=== PATIENT | female | born 2000 | race Caucasian/White ===

== ENCOUNTER 2020-04-13 16:11 | Outpatient (CLI) | payer MEDICAID ==
[~2020-04-13] VITALS: Ht 157 cm; Wt 91.2 kg
--- NOTE | 2020-04-13 15:45 | NUR ---
Arrived to unit ambulates self accompanied by mother. Pt here for c/o contraction pain, leaking fluid and nausea. wt obtained and to room 318. Gowned and urine sample obtained. pt void, gowned and to bed. plan of care reviewed with pt and mother.
[2020-04-13 16:20] VITALS: BP 132/69
[2020-04-13] MEDS ORDERED: PREN-37 PO (16:23)
--- NOTE | 2020-04-13 16:25 | NUR ---
Dr Bishop notified of pt arrival, gestation and c/o.
[2020-04-13 17:00] LABS: BILIRUBIN,URINE NEGATIVE (NEGATIVE); COLOR,URINE YELLOW; GLUCOSE, URINE (UA) NEGATIVE (NEGATIVE); KETONES,URINE NEGATIVE (NEGATIVE); LEUKOCYTE ESTERASE ,URINE 2+ (NEGATIVE); NITRITE,URINE NEGATIVE (NEGATIVE); PROTEIN,URINE NEGATIVE (NEGATIVE)
[2020-04-13 17:05] LABS: CLARITY,URINE SL CLOUDY
[2020-04-13 17:06] LABS: BACTERIA,URINE MODERATE /HPF
[2020-04-13] MEDS ORDERED: CEPH-506 PO (17:27)
[2020-04-13] MEDS ORDERED: ACET325C7 PO (17:28)
--- NOTE | 2020-04-13 17:33 | Discharge Inst-Simple/Standard ---
Discharge Inst-Standard Reconcile Patient Problems Problems Reviewed?: Yes Discharge Medications New, Converted or Re-Newed RX: RX Given to Pt/Family Patient Instructions/Follow Up Plan of Care/Instructions/FU: UTI in : 5 day course of oral antibiotic Keflex, 250mg every 6 hours for 5 days Activity as Tolerated: Yes Goal: Drink plenty of water, take tylenol as directed for headaches/pains, and strict return precautions Discharge Diet: No Restrictions Health Concerns: None Return to [facility]: Return precautions in JOSEMANUEL NAPOLES MD Apr 13, 2020 17:33
[2020-04-13 17:42] VITALS: BP 132/69
--- NOTE | 2020-04-13 17:48 | NUR ---
Discharge instructions explained, signed and copy to patient. pt verbalized understanding of instructions and denied questions.
--- NOTE | 2020-04-13 17:49 | OB Triage Report ---
JOSEMANUEL NAPOLES MD 04/13/20 1749: Standard Progress Note Progress Notes/Assess & Plan Date Seen by a Provider: Apr 13, 2020 Time Seen by a Provider: 17:00 Expected Date of Delivery: Apr 19, 2020 Gestational Age in Weeks: 39 Gestational Age in Days: 1 LMP/DAISY Comment: DAISY by LMP 07/14/2019 Progress/Assessment & Plan Assessment: , 39th week gestation Positive NG/CT, DAVI- PUPPs Rubella Equivocal UTI Lula Cardenas is a 19 yo female who presented to triage with UTI. Discharged home with oral antibiotics and strict return precautions. Plan: Keflex 250mg q6h x 5 days Tylenol 325mg q4h prn pain/headache Urine sent for culture Strict return precautions Keep all OB appts Plan for elective induction 04/21/2020 HPI: Lula is a at 39w1d were presented to OB triage for a sustained contraction that occurred this afternoon in the shower that was so severe she had to sit down. She notes it lasted about 4 minutes. She admits to cramping like abdominal pain otherwise; she has not been counting contractions or movements. She admits to losing her mucus plug last week, and stating she has bloody show with her clinic cervical checks. She has been 3/0/-3 at her previous cervical checks. She states that she has had loss of fluid that is thick and yellow in color, small volume that is noticeable when she pees. She admits to rib tightness, headache that is intractable, continued pruritus. Denies vision changes, shortness of breath, chest pain/pressure, RUQ pain, and increased swelling. She has not tried any OTC medications for her headache and/or abdominal pain. VB-, LOF+ (see above), FM+, CTX+ Objective: General: No acute distress HEENT: No focal deficits CV: Regular rate, pulses palpable Lungs: No resp distress Abd: RUQ nonTTP Ext: Nonpitting edema in BLE, symmetric SVE: 350/-2 FHR: 135 Category: I, accels, no decels, prolonged variability TOCO: 09/20, irritability UA: 2+ Leukocytes, 20-50 WBC, moderate bacteria O+, Ab -, HepB -, RE, RPR-, NG/CT+ (DAVI -), GBS-, COVID unknown Final Diagnosis Final diagnosis: UTI in Diagnosis/Problems Diagnosis/Problems (1) UTI in Status: Acute Assessment & Plan: Keflex 250mg q6h x 5days Qualifiers: Qualified Codes: O23.43 - Unspecified infection of urinary tract in , third trimester ANNIE MERCADO MD 04/13/20 1207: Standard Progress Note Final Diagnosis Patient was reviewed with me over the phone and agree with above assessment and plan. JOSEMANUEL Amos MD Apr 13, 2020 17:49 ANNIE MERCADO MD Apr 13, 2020 19:07
--- NOTE | 2020-04-13 17:50 | NUR ---
Discharged to home with belongings in hand. Ambulates self downstairs to private vehicle with belongings in hand. Accompanied by mother.
== END 2020-04-13 17:50 | disposition home or self-care (01) ==
LOC: WSo 16:11 → LDRP 16:11 → WSo 17:50
PROVIDERS: ATTEND Family Medicine
DX: O23.43 Unspecified infection of urinary tract in pregnancy, third trimester (principal); Z3A.39 39 weeks gestation of pregnancy
CPT/HCPCS: 81000; 87088; 99213

== ENCOUNTER 2020-04-21 05:31 | Inpatient (IN) | payer MEDICAID ==
[~2020-04-21] VITALS: Ht 157.5 cm; Wt 95.4 kg
[2020-04-21] VITALS (62 sets, daily range): BP systolic 90–145; BP diastolic 31–88
[~2020-04-21 05:31] MED LIST: ACET325C7 PO; CEPH-506 PO; PREN-37 PO
--- OUTSIDE RECORDS SUMMARY | 2020-04-21 05:39 | XMS REPORT | Continuity of Care Document ---
Author Organization Unknown Address Unknown Phone Unavailable Allergies Active Description Code Type Severity Reaction Onset Reported/Identified Relationship to Patient Clinical Status Yes No Known Drug Allergies [id number] Drug Allergy Unknown N/A 04/13/2020 Medications There is no data. Problems Date Dx Coded Attending Type Code Diagnosis Diagnosed By 10/17/2013 DAMAIN CASAS 311 DEPRESSIVE DISORDER NOT ELSEWHERE CLASSIFIED 04/17/2020 JESS DAVIS, ANNIE Mirza Ot O23.4 3 UNSP INFCT OF URINARY TRACT IN 04/17/2020 ANNIE MERCADO MD, Ot Z3A.3 9 39 WEEKS GESTATION OF Procedures Code Description [place] [address] PSYC H DIAGNOSTIC EVALUATION 10/23/2013 Results Test Result Range CULTURE, URINE - 10/03/19 19:00 CULTURE, URINE, ROUTINE SEE NOTE NRG CULTURE, GENITAL - 10/03/19 19:00 CULTURE, GENITAL SEE NOTE NRG RUBELLA IMMUNE STATUS - 10/10/19 13:27 RUBELLA ANTIBODY (IGG) 0.95 index NRG CULTURE, GENITAL - 11/05/19 16:46 CULTURE, GENITAL SEE NOTE NRG PENTA SCREEN - 12/04/19 10:28 Maternal Weight 170 lbs NRG Est'd Date of Delivery 04/19/2020 NRG DAISY Determined by LMP NRG Mother's Ethnic Origin NRG Number of Fetuses 1 NRG Insulin Depend Diabetic NO NRG Repeat Specimen NO NRG Hx Of Neural Tube Defects NO NRG Prev Down Synd NO NRG Donor Egg NO NRG Donor Age: Egg Retrieval NOT GIVEN NRG Cigarette smoker NOT GIVEN NRG INTERPRETATION: SEE NOTE NRG Risk for ONTD <1:5000 NRG Age Risk Down Syndrome 1:1178 NRG ETHAN Down Syndrome Risk <1:5000 <1:270 ETHAN Trisomy 18 Risk <1:5000 <1:100 Calc'd Gestational Age 20.4 NRG AFP, Serum 44.2 ng/mL NRG AFP MoM 0.81 NRG hCG, Serum 7.0 IU/mL NRG hCG MoM 0.39 NRG Estriol, Free 1.74 ng/mL NRG Estriol MoM 0.86 NRG Inhibin A, Dimeric 70 pg/mL NRG Inhibin A MoM 0.43 NRG h-hCG, Serum 5.7 mcg/L NRG h-hCG MoM 0.56 NRG Date of 2000 NRG Collection Date 12/04/2019 NRG GLUCOSE JOAN 1 HOUR - 01/30/20 09:48 GLUCOSE, POSTPRANDIAL/ 1 HOUR 131 mg/dL See Note: CBC - 01/30/20 09:48 WHITE BLOOD CELL COUNT 11.3 Thousand/uL 3.8-10.8 RED BLOOD CELL COUNT 4.03 Million/uL 3.8 0-5.10 HEMOGLOBIN 12.0 g/dL 11.7-15.5 HEMATOCRIT 36.1 % 35.0-45.0 MCV 89.6 fL 80.0-100.0 MCH 29.8 pg 27.0-33.0 MCHC 33.2 g/dL 32.0-36.0 RDW 12.5 % 11.0-15.0 PLATELET COUNT 228 Thousand/uL 140-400 MPV 11.2 fL 7.5-12.5 ABSOLUTE NEUTROPHILS 8407 cells/uL 1500- 7800 ABSOLUTE LYMPHOCYTES 2305 cells/uL 850-3 900 ABSOLUTE MONOCYTES 475 cells/uL 200-950 ABSOLUTE EOSINOPHILS 79 cells/uL 15-500 ABSOLUTE BASOPHILS 34 cells/uL 0-200 NEUTROPHILS 74.4 % NRG LYMPHOCYTES 20.4 % NRG MONOCYTES 4.2 % NRG EOSINOPHILS 0.7 % NRG BASOPHILS 0.3 % NRG SYPHILIS (RPR W/ REFLEX CONFIRMATION) - 01/30/20 09:48 RPR (DX) W/REFL TITER AND CONFIRMATORY TESTING NON-REACTIVE NON-REACTIVE GLUCOSE JOAN 3 HOUR - 02/06/20 13:49 TIME 1 1038 NRG SPECIMEN 1 76 mg/dL 65-99 TIME 2 1145 NRG SPECIMEN 2 135 mg/dL NRG TIME 3 1245 NRG SPECIMEN 3 145 mg/dL NRG TIME 4 1345 NRG SPECIMEN 4 135 mg/dL NRG COMMENT NRG GLUCOSE JOAN 3 HOUR - 03/03/20 14:21 TIME 1 FASTING NRG SPECIMEN 1 81 mg/dL 65-99 TIME 2 1 HOUR NRG SPECIMEN 2 150 mg/dL NRG TIME 3 2 HOURS NRG SPECIMEN 3 113 mg/dL NRG TIME 4 3 HOURS NRG SPECIMEN 4 120 mg/dL NRG COMMENT NRG BILE ACIDS, FRACTIONATED LCMS - 03/11/20 10:42 CHOLIC ACID 0.6 umol/L < OR = 1.8 DEOXYCHOLIC ACID <0.5 umol/L < OR = 2.4 CHENODEOXYCHOLIC ACID <0.5 umol/L < OR = 3.1 TOTAL BILE ACIDS <1.5 umol/L < OR = 6.8 CULTURE, GROUP B STREP (VAGINAL) - 03/25 10:42 STREPTOCOCCUS, GROUP B CULTURE SEE NOTE NRG Complete urinalysis with reflex to cultu re - 04/13/20 16:30 Urine color determination YELLOW NRG Urine clarity determination SL CLOUDY N RG Urine pH measurement by test strip 7.0 5-9 Specific gravity of urine by test strip 1.010 1.016-1.022 Urine protein assay by test strip, semi-quantitative NEGATIVE NEGATIVE Urine glucose detection by automated test strip NE GATIVE NEGATIVE Erythrocytes detection in urine sediment by light micr oscopy NEGATIVE NEGATIVE Urine ketones detection by automated test strip NE GATIVE NEGATIVE Urine nitrite detection by test strip NEGATIVE NEGATIVE Urine total bilirubin detection by test strip NEGA TIVE NEGATIVE Urine urobilinogen measurement by automated test strip (mass/volume) 0.2 mg/dL < = 1.0 Urine leukocyte esterase detection by dipstick 2+ NEGATIVE Automated urine sediment erythrocyte cou nt by microscopy (number/high power field) NONE NRG Automated urine sediment leukocyte count by microscopy (number/high power field) [HPF] NRG Bacteria detection in urine sediment by light microsco py MODERATE NRG Squamous epithelial cells detection in u rine sediment by light microscopy 10-25 NRG Crystals detection in urine sediment by light microsco py NONE NRG Casts detection in urine sediment by light microscopy NONE NRG Mucus detection in urine sediment by light microscopy NEGATIVE NRG Complete urinalysis with reflex to culture YES NRG Bacterial urine culture - 04/13/20 16:30 Bacterial urine culture 3 OR MORE NRG COLONY COUNT >100,000/ML NRG SUSCEPTIBILITY GRAM POSITIVES, SUGGESTING PROBABLE NRG MRSA SCREEN COLLECTION CONTAMINATION WITH SKIN ALANNAH RA NRG RAPID ID NO SUSCEPTIBILITY PERFORMED N RG Encounters ACCT No. Visit Date/Time Discharge Status Pt. Type Provider Facility Loc./Unit Complaint [id number] 04/15/2020 15:15:00 04/15/2020 23:59: 59 CLS Outpatient HAILEY DAVIS, [facility] [id number] 03/25/2020 09:00:00 Document Registration [id number] 03/11/2020 09:20:00 Document Registration [id number] 03/03/2020 10:40:00 Document Registration [id number] 02/06/2020 10:20:00 Document Registration [id number] 01/30/2020 08:20:00 Document Registration [id number] 12/04/2019 13:00:00 Document Registration [id number] 11/05/2019 14:20:00 Document Registration [id number] 10/10/2019 13:20:00 Document Registration [id number] 10/03/2019 14:00:00 Document Registration [id number] 10/17/2013 13:12:00 10/17/2013 23:59:5 9 CLS Outpatient DAMIAN CASAS [id number] 04/13/2020 16:11:00 020 17:50:00 DIS Outpatient JESS DAVIS, ANNIE Escudero [facility],CONTRACTIONS [id number] 04/21/2020 06:00:00 P CANDIDO Preadanil HART MD, JYOTI GARCIA
--- NOTE | 2020-04-21 05:40 | NUR ---
SILVESTRE CALHOUN presented to unit via ambulation from home/ED, accompanied by felled seam operator chainstitch & SO, for INDUCTION. SILVESTRE CALHOUN weighed, gowned, voided, and to bed. EFHM and TOCO applied, VS taken. SILVESTRE CALHOUN oriented to bed controls, call light, TV, heat, and A/C controls.
[2020-04-21] MEDS ORDERED: D5 LR IV SOLUTION 1,000 ML IV ONE (06:04)
[2020-04-21] MEDS ORDERED: OXYTOCIN PRE-MIX DRIP 500 ML IV SCH ×2 (06:48→21:43)
[2020-04-21] MEDS: D5 LR IV SOLUTION 1,000 ML IV SCH ×2 (06:57→14:12)
[2020-04-21] MEDS ORDERED: FAMOTIDINE 20MG/2ML IV (PEPCID) ONE (07:34)
--- NOTE | 2020-04-21 07:38 | History & Physical-OB ---
JOSEMANUEL BISHOP MD 04/21/20 0737: OB - Chief Complaint & HPI Date/Time Date of Admission: Date of Admission: Apr 21, 2020 at 05:31 Date seen by a Provider: Apr 21, 2020 Time Seen by a Provider: 07:15 Chief Complaint/History OB-Reason for Admission/Chief: Induction of Labor Hx : 2 Hx Para: 0 Hx Last Menstrual Period: 07/14/2019 Expected Date of Delivery: Apr 19, 2020 Gestational Age in Weeks: 40 Gestational Age in Days: 2 Indication for induction: post dates Admission Nurse Assessment Rev: Yes Allergies and Home Medications Allergies Coded Allergies: No Known Drug Allergies (Unverified , 04/21/20) Home Medications Acetaminophen 325 Mg Capsule, 325 MG PO Q4H PRN for PAIN-MILD (1-4) Prescribed by: JOSEMANUEL BISHOP on 04/13/20 1728 Mpo343/FA/Omega3/Dha/Fish Oil 1 Each Tab.chew, 2 EACH PO DAILY, (Reported) Patient Home Medication List Home Medication List Reviewed: Yes OB - History Hx of Present Care: Yes Ultrasounds: Normal mid trimester US Obstetrical Complications: Other (PUPPS) Medical Complications: None Information Induced Hypertension: No Maternal Gestational Diabetes: No Hemorrhage: No Obstetrical History Hx : 2 Hx Para: 0 Hx # Term Pregnancies: 0 Hx # Pregnancies: 0 Number of Living Children: 0 Hx Total # of Abortions (Spona: 1 Hx Multiple Gestation: No Hx Ectopic : No Hx Stillbirth: No Hx Complication: No Hx Induced Hypertens: No Hx Maternal Gestational Diabet: No Hx Hemorrhage: No Patient Past Medical History No significant past medical history Social History/Family History HIV/AIDS: No Recent Infectious Disease Expo: No Sexually Transmitted Disease: Yes (Positive NG/CT, neg DAVI) Recreational Drug Use: No Smoking Cessation: Former smoker Immunizations Hepatitis A: Yes Hepatitis B: Yes Rubella: not immune (Equivocal) RPR/VDRL: Negative GBS Status: Negative HBsAG: Negative OB - Admission Exam Physical Exam Vitals: Vital Signs 04/21/20 06:21 Temp 36.0 Pulse 94 Resp 18 Pulse Ox 97 O2 Delivery Room Air HEENT: EOMI Heart: Rhythm Normal Lungs: Clear (Non-labored respirations) Abdomen: Gravid Extremities: Normal Reflexes: Normal Cervical Dilatation: 3cm Effacement: 50% Station: -2 Membranes: Intact Heart Rate: 130's Accelerations: Accelerations Present Decelerations: No Decelerations Extension Educator Variability: Average (6-25) Contractions on Admission: None Savage Scoring Tool (Modified) Dilation (cm): 3-4cm (2) Effacement (%): 51-79% (2) Descent/Station: -2 (1) Cervix Consistency: Medium(1) Cervix Position: Middle/Mid-Position (1) Subtract 1 point for: Nulliparity (-1) Savage Score: 6 OB - Assessment/Plan/Diagnosis Assessment Assessment: induction of labor Admission Dx Elective induction of labor 40 week gestation of Admission Status: Inpatient Order (span 2 midnights) Reason for Inpatient Admission: Elective induction of labor Plan Plan: Induction Induction Method: per Pitocin Protocol Other Plan - Induction of labor per Pitocin protocol - Patient Rubella equivocal, will need MMR Problems: (1) 40 weeks gestation of Assessment & Plan: - O+. Ab-, RPR-, HIV-, RE, NG/CT+ (-DAVI), GBS- - TOCO/CFM - IVFs - CLD (2) Encounter for induction of labor Assessment & Plan: - Pitocin protocol - Anesthesia: plan for Epidural - Pepcid for GERD (3) Rubella non-immune status, antepartum Assessment & Plan: - Will need MMR post- JYOTI HART MD 04/21/20 1009: Allergies and Home Medications Allergies Coded Allergies: No Known Drug Allergies (Unverified , 04/21/20) Home Medications Acetaminophen 325 Mg Capsule, 325 MG PO Q4H PRN for PAIN-MILD (1-4) Prescribed by: JOSEMANUEL BISHOP on 04/13/20 1728 Wbe876/FA/Omega3/Dha/Fish Oil 1 Each Tab.chew, 2 EACH PO DAILY, (Reported) Supervisory-Addendum Brief Supervisory Addendum I personally have seen and evaluated the patient. I agree with the documentation by PGY-2 Dr. Bishop. JOSEMANUEL BISHOP MD Apr 21, 2020 07:37 JYOTI HART MD Apr 21, 2020 10:09
[2020-04-21] MEDS: CATHETER FLUSH 10 ML SYR IV SCH ×3 (07:39→22:20)
[2020-04-21] MEDS ORDERED: FAMOTIDINE 20MG/2ML IV (PEPCID) IVP ONE (07:45)
[2020-04-21 07:55] LABS: BASOPHILS % (AUTO) 0 % (0-10); EOSINOPHILS # (AUTO) 0.3 10^3/uL (0.0-0.3); EOSINOPHILS % (AUTO) 3 % (0-10); HEMATOCRIT 34 % (35-52); HEMOGLOBIN 11.7 G/DL (11.5-16.0); LYMPHOCYTES # (AUTO) 2.5 X 10^3 (1.0-4.0); LYMPHOCYTES % (AUTO) 23 % (12-44); MEAN CORPUSCULAR HEMOGLOBIN 29 PG (25-34); MEAN CORPUSCULAR HGB CONC 34 G/DL (32-36); MEAN CORPUSCULAR VOLUME 85 FL (80-99); MEAN PLATELET VOLUME 11.3 FL (7.4-10.4); MONOCYTES % (AUTO) 9 % (0-12); NEUTROPHILS # (AUTO) 7.1 X 10^3 (1.8-7.8); NEUTROPHILS % (AUTO) 65 % (42-75); PLATELET COUNT 210 10^3/uL (130-400); RED CELL DISTRIBUTION WIDTH 14.1 % (10.0-14.5); WHITE BLOOD COUNT 10.9 10^3/uL (4.3-11.0)
[2020-04-21] MEDS ORDERED: PNV11TAB5 PO (08:53)
[2020-04-21] MEDS ORDERED: fentaNYL 2 mcg/ml BUPIVA 0.125 100 ML ONE (10:41)
[2020-04-21] MEDS ORDERED: fentaNYL INJECTION 100 MCG/2 ML AMP ONE ×2 (11:09→20:35)
[2020-04-21] MEDS ORDERED: BUPIVACAINE 0.25% 30 ML (SENSORCAINE) VIAL ONE (11:09)
--- NOTE | 2020-04-21 11:16 | NUR ---
Dr. Morales here for epidural placement. Procedure explained, consent reviewed and signed by anesthesia. Questions answered to patient's satisfaction. Time out taken to verify correct patient/procedure. Patient up to side of bed, assisted into sitting position. Betadine prep done x3 and sterile drape applied. Local done, see anesthesia record. Test dose given, see anesthesia record for drug and dosage. Epidural catheter secured in place. Epidural placement complete. Assisted back into bed, monitors adjusted. Epidural dosed, see anesthesia record. Epidural of Fentanyl/Bupivicaine @ 12 cc/hr stated per pump. Patient tolerated procedure well.
[2020-04-21] MEDS: fentaNYL 2 mcg/ml BUPIVA 0.125 100 ML IV SCH ×2 (11:35→19:17)
[2020-04-21] MEDS ORDERED: LACTATED RINGERS 1,000 ML IV ONE ×2 (12:41→20:20)
[2020-04-21] MEDS ORDERED: diphenhydrAMINE 50 MG/ML INJ (BENADRYL) IV PRN (12:45)
[2020-04-21] MEDS ORDERED: NALOXONE 0.4 MG/ML 1 ML (NARCAN) VIAL IV PRN (12:45)
[2020-04-21] MEDS ORDERED: CATHETER FLUSH 10 ML SYR IV PRN (12:45)
[2020-04-21] MEDS ORDERED: EPIDURAL (fentaNYL 2 MCG/ML BUPIVA 0.125%)100 ML BAG EPI SCH (12:45)
[2020-04-21] MEDS ORDERED: ONDANSETRON 4 MG/2 ML (SDV) Z0FRAN IV PRN (12:45)
[2020-04-21] MEDS ORDERED: METOCLOPRAMIDE INJ 10 MG/2 ML (REGLAN) IVP NR (15:30)
--- NOTE | 2020-04-21 18:30 | NUR ---
Dr. Samuels updated on patient's status. Will come to hospital to evaluate patient.
[2020-04-21] MEDS ORDERED: FAMOTIDINE 20MG/2ML IV (PEPCID) IVP PRN (19:45)
[2020-04-21] MEDS ORDERED: CITRIC ACID/SOB CIT (BICITRA) 30 ML UDC ONE (20:20)
[2020-04-21] MEDS ORDERED: ceFAZolin 2 GM IV Premixed 50 ML ONE (20:20)
[2020-04-21] MEDS ORDERED: LACTATED RINGERS 1,000 ML IV PRN ×2 (20:23)
[2020-04-21] MEDS ORDERED: METOCLOPRAMIDE INJ 10 MG/2 ML (REGLAN) IV ONE (20:30)
[2020-04-21] MEDS ORDERED: ceFAZolin 2 GM IV Premixed 50 ML IV ONE (20:30)
[2020-04-21] MEDS ORDERED: CITRIC ACID/SOB CIT (BICITRA) 30 ML UDC PO ONE (20:30)
--- NOTE | 2020-04-21 20:31 | Labor Progress Note ---
Labor Progress Note Labor Progress Note Date Seen by Provider: Apr 21, 2020 Time Seen by Provider: 20:15 Subjective: Pt denies complaints. Objective: Cervical exam: 80/-2 Consistency: soft Position: anterior Presentation: vertex heart tones: 180 beats per minute, moderate variability Tocometer: 5 ctx/10 minutes Assessment/Plan: Lula Cardenas is a 19 /Para 2 / 0,Gestational Age 40w2d here for IOL. FSE/TOCO Anesthesia: epidural No cervical change in 4 hours in spite of adequate contractions with pitocin and SROM this morning, increasing caput without gain of station, suspect OP/CPD, now with tachycardia, discussed with patient and recommend proceeding to . She is in agreement. Discussed with Dr. Dalal front of house manager for [employer] Chemist who is also in agreement. Vitals - Labs Vital Signs - I&O Vital Signs Date Time Temp Pulse Resp B/P (MAP) Pulse Ox O2 Delivery O2 Flow Rate FiO2 04/21/20 20:00 87 18 111/75 (87) 99 04/21/20 19:40 96 18 129/63 (85) 99 04/21/20 19:20 36.5 97 20 132/74 (93) 98 04/21/20 19:00 97 18 120/76 (91) 99 Room Air 04/21/20 18:45 97 18 132/78 (96) 99 Room Air 04/21/20 18:30 36.3 97 18 132/78 (96) 98 Room Air 04/21/20 18:15 106 18 107/59 (75) 98 Room Air 04/21/20 18:00 101 18 98/55 (69) 99 Room Air 04/21/20 17:45 100 18 100/53 (69) 99 Room Air 04/21/20 17:30 36.6 95 18 110/72 (85) 97 Room Air 04/21/20 17:15 86 18 100/57 (71) 96 Room Air 04/21/20 17:00 86 18 99/57 (71) 97 Room Air 04/21/20 16:45 78 18 101/55 (70) 97 Room Air 04/21/20 16:30 36.4 86 18 115/64 (81) 96 Room Air 04/21/20 16:15 86 18 111/69 (83) 97 Room Air 04/21/20 16:00 36.1 83 18 111/72 (85) 97 Room Air 04/21/20 15:45 96 18 122/85 (97) 98 Room Air 04/21/20 15:30 35.7 100 18 117/73 (88) 98 Room Air 04/21/20 15:15 96 18 125/77 (93) 97 Room Air 04/21/20 15:00 93 18 127/70 (89) 98 Room Air 04/21/20 14:45 95 18 121/69 (86) 97 Room Air 04/21/20 14:30 99 18 122/69 (86) 98 Room Air 04/21/20 14:15 127 18 135/71 (92) 98 Room Air 04/21/20 14:00 100 18 131/70 (90) 98 Room Air 04/21/20 13:45 102 18 134/63 (86) 98 Room Air 04/21/20 13:30 98 18 133/88 (103) 98 Room Air 04/21/20 13:15 36.0 94 18 122/75 (91) 98 Room Air 04/21/20 13:00 83 18 126/74 (91) 98 Room Air 04/21/20 12:45 87 18 129/78 (95) 98 Room Air 04/21/20 12:30 36.3 93 18 135/77 (96) 98 Room Air 04/21/20 12:15 85 18 132/74 (93) 97 Room Air 04/21/20 12:00 85 18 141/71 (94) 97 Room Air 04/21/20 11:45 107 18 145/75 (98) 97 Room Air 04/21/20 11:33 97 18 139/71 (93) 97 Room Air 04/21/20 11:30 97 18 138/84 (102) 98 Room Air 04/21/20 11:27 94 18 137/87 (104) 97 Room Air 04/21/20 11:26 104 18 136/80 (98) 98 Room Air 04/21/20 11:18 100 18 142/88 (106) 98 Room Air 04/21/20 11:16 100 18 136/79 (98) 98 Room Air 04/21/20 11:15 101 18 136/79 (98) Room Air 04/21/20 11:00 95 18 135/82 (99) Room Air 04/21/20 10:45 36.3 93 18 126/84 (98) Room Air 04/21/20 10:30 79 18 119/67 (84) Room Air 04/21/20 10:15 84 18 139/82 (101) Room Air 04/21/20 10:00 88 18 132/79 (96) Room Air 04/21/20 09:45 83 18 127/75 (92) Room Air 04/21/20 09:30 83 18 139/79 (99) Room Air 04/21/20 09:15 18 Room Air 04/21/20 09:00 18 Room Air 04/21/20 08:45 90 18 119/76 (90) Room Air 04/21/20 08:30 90 18 120/77 (91) Room Air 04/21/20 08:15 98 18 135/85 (102) Room Air 04/21/20 08:00 83 18 127/78 (94) Room Air 04/21/20 07:45 82 18 133/80 (97) Room Air 04/21/20 07:10 36.3 04/21/20 06:21 36.0 94 18 97 Room Air Labs Laboratory Tests 04/21/20 07:44: White Blood Count 10.9, Red Blood Count 4.03L, Hemoglobin 11.7, Hematocrit 34L, Mean Corpuscular Volume 85, Mean Corpuscular Hemoglobin 29, Mean Corpuscular Hemoglobin Concent 34, Red Cell Distribution Width 14.1, Platelet Count 210, Mean Platelet Volume 11.3H, Neutrophils (%) (Auto) 65, Lymphocytes (%) (Auto) 23, Monocytes (%) (Auto) 9, Eosinophils (%) (Auto) 3, Basophils (%) (Auto) 0, Neutrophils # (Auto) 7.1, Lymphocytes # (Auto) 2.5, Monocytes # (Auto) 1.0, Eosinophils # (Auto) 0.3, Basophils # (Auto) 0.0 JYOTI HART MD Apr 21, 2020 20:31
[2020-04-21] MEDS ORDERED: BUPIVACAINE 0.5% 30 ML (SENSORCAINE) VIAL ONE ×2 (20:35→22:11)
[2020-04-21] MEDS ORDERED: LIDOCAINE PF 2% 5 ML (XYLOCAINE) VIAL ONE (20:35)
--- NOTE | 2020-04-21 20:53 | NUR ---
Monitors removed. Pt taken to OR per OR staff.
[2020-04-21] MEDS ORDERED: ONDANSETRON 4 MG/2 ML (SDV) Z0FRAN ONE (21:07)
[2020-04-21] MEDS ORDERED: KETAMINE/NaCl 50 MG/5 ML SYRINGE (ED ONLY) ONE (21:12)
[2020-04-21] MEDS ORDERED: KETOROLAC 30 MG/ML VIAL ONE (21:34)
[2020-04-21] MEDS ORDERED: TETANUS,DIPTH,PERTUSS P/F (BOOSTRIX) 0.5 ML VIAL IM SCH (21:45)
[2020-04-21] MEDS ORDERED: MEASLES,MUMPS,RUBELLA 1 EA INJ SC SCH (21:45)
[2020-04-21] MEDS ORDERED: ONDANSETRON 4 MG/2 ML (SDV) Z0FRAN IVP PRN (21:45)
--- NOTE | 2020-04-21 21:49 | Consultation ---
History of Present Illness History of Present Illness Patient Consulted On(norma/time) 04/21/20 21:46 Date Seen by Provider: Apr 21, 2020 Time Seen by Provider: 21:46 Reason for Visit: Induction of labor History of Present Illness Patient admitted for labor induction post dates. AROM, Pitocin used and progressed to 6 cm, and made no change for 4 hrs when I was contacted about per sistent tachycardia Allergies and Home Medications Allergies Coded Allergies: No Known Drug Allergies (Unverified , 04/21/20) Home Medications Acetaminophen 325 Mg Capsule, 325 MG PO Q4H PRN for PAIN-MILD (1-4) Prescribed by: RITANIKKI YESIKA on 04/13/20 1728 Dyr419/FA/Omega3/Dha/Fish Oil 1 Each Tab.chew, 2 EACH PO DAILY, (Reported) Patient Home Medication List Home Medication List Reviewed: Yes Past Jjtqhcc-Izdiqz-Mjqslz Hx Patient Social History Alcohol Use: Denies Use Recreational Drug Use: No Smoking Status: Former Smoker Type Used: Cigarettes Former Smoker, Quit: Sep 10, 2019 Recent Foreign Travel: No Contact w/Someone Who Travel: No Recent Infectious Disease Expo: No Recent Hopitalizations: No Immunizations Up To Date PED Vaccines UTD: Yes Seasonal Allergies Seasonal Allergies: No Past Medical History Surgeries: Yes (D&C 2018, Tooth Extraction) Respiratory: No Cardiac: No Neurological: No Expected Date of Delivery: Apr 19, 2020 Hx : 2 Hx Para: 0 Hx Total # of Abortions (Sp): 1 Female Reproductive Disorders: Denies Sexually Transmitted Disease: Yes (GC/Chlamydia with this ) HIV/AIDS: No Genitourinary: Yes UTI-Chronic Gastrointestinal: Yes Gastroesophageal Reflux Musculoskeletal: No Endocrine: No HEENT: No Loss of Vision: Denies Hearing Impairment: Denies Cancer: No Psychosocial: No Integumentary: Yes (PUPPS with this ) Blood Disorders: No Adverse Reaction/Blood Tranf: No Family Medical History Heart murmur Grandparents (Maternal Grandmother) History of seizure in sibling G8 BROTHER (At age 7-8 r/t Cyst in Brain) Myocardial infarction Great-Grandparents (Maternal Great-Grandfather) Neoplasm Grandparents (Paternal Grandfather-) Ovarian cancer Great-Grandparents (Maternal Great-Grandmother) Psychosocial problem 19 FATHER (PTSD) Respiratory disorder Great-Grandparents (Maternal Great-Grandfather: Mesothelioma) Review of Systems-General Constitutional: see HPI EENTM: see HPI Respiratory: see HPI Cardiovascular: see HPI Gastrointestinal: see HPI Genitourinary: see HPI : Yes Expected Date of Delivery: Apr 19, 2020 Musculoskeletal: see HPI Skin: see HPI Psychiatric/Neurological: See HPI All Other Systems Reviewed Negative Unless Noted: Yes Physical Exam-General Problems Physical Exam Vital Signs Vital Signs - First Documented 04/21/20 04/21/20 06:21 07:45 Temp 36.0 Pulse 94 Resp 18 B/P (MAP) 133/80 (97) Pulse Ox 97 O2 Delivery Room Air Capillary Refill : Less Than 3 Seconds General Appearance: WD/WN HEENT: PERRL/EOMI Neck: non-tender Respiratory: chest non-tender Cardiovascular: regular rate, rhythm Gastrointestinal: normal bowel sounds Back: normal inspection Neurologic/Psychiatric: normal mood/affect, oriented x 3 Assessment/Plan Assessment/Plan Admission Diagnosis/Plan Diagnosis: 19 yo @ 40.2 weeks Failure to progress Persistent tachycardia Admission Status: Inpatient Order (span 2 midnights) Reason for Inpatient Admission: PLTCS Clinical Quality Measures DVT/VTE Risk/Contraindication: Risk Factor Score Per Nursin RFS Level Per Nursing on Admit: 2=Moderate KARINE IRWIN DO Apr 21, 2020 21:49
[2020-04-21] MEDS ORDERED: CATHETER FLUSH 10 ML SYR IV SCH (22:00)
[2020-04-21] MEDS ORDERED: OXYTOCIN PRE-MIX DRIP 1,000 ML IV ONE (22:11)
[2020-04-21] MEDS: KETOROLAC 30 MG/ML VIAL IV SCH (22:11)
--- NOTE | 2020-04-21 23:00 | NUR ---
Pt to room 308 from recovery.
[2020-04-22 00:15] VITALS: BP 118/70
--- NOTE | 2020-04-22 01:00 | NUR ---
Assisted pt up to bathroom to void. tolerated well. Void small amount. Jessica care done. Minimal rubra noted. No clots. Back to bed. SCD's in place. IS done. tolerated well.
--- NOTE | 2020-04-22 01:30 | NUR ---
Assisted with breast feeding.
--- NOTE | 2020-04-22 03:48 | OPERATIVE REPORT ---
DATE OF SERVICE: PREOPERATIVE DIAGNOSES: 1. A 19-year-old G2, P0 at 40 weeks and 2 days gestation. 2. Failure to progress. 3. Persistent tachycardia. POSTOPERATIVE DIAGNOSES: 1. A 19-year-old G2, P0 at 40 weeks and 2 days gestation. 2. Failure to progress. 3. Persistent tachycardia. 4. Nuchal cord x1. PROCEDURE: Primary low transverse section. SURGEON: Charan Dalal DO ARCHEOLOGIST: Tori Sher, 3rd year PA student. ANESTHESIA: Epidural, which was bolused. ESTIMATED BLOOD LOSS: 450 mL. URINE OUTPUT: 300 mL pink tinged at the end of the procedure. FLUIDS: 1000 mL lactated Ringer's solution. FINDINGS: A live male infant weighing 6 pounds 14 ounces, Apgars of 7 and 9. Grossly normal appearing uterus, bilateral fallopian tubes and ovaries. SPECIMEN SENT: Placenta. INDICATIONS FOR PROCEDURE: A 19-year-old female was a patient that was admitted and sought care with Dr. Samuels. Her care was uncomplicated. She was induced for postdates. AROM and Pitocin augmentation was used as well as epidural was achieved for analgesia. She progressed to 6 cm, at which point she made no cervical change for over 4 hours and there was also persistent tachycardia. Due to this tachycardia and remote from delivery, recommendation was made to proceed with . Risks of the procedure was reviewed with the patient in detail and after all of her questions were answered in the preoperative area, consent was obtained with her mother present and the patient was taken to the operating room. OPERATIVE REPORT IN DETAIL: Once in the operating room, epidural analgesia was bolused and found to be adequate, placed in supine position with leftward tilt, prepped and draped in normal sterile fashion. A timeout was performed and anesthesia was tested. I then make a Pfannenstiel skin incision with a knife and carried down layer of fascia using Bovie cautery. Superior aspect of the fascial incision was then grasped with Nikia clamps, tented up and dissected off the underlying rectus muscles. The inferior aspect of the fascial incision was then grasped with Nikia clamps, tented up and dissected off the underlying rectus muscles. Rectus muscles were then dissected down the midline using Gauthier scissors, which exposed the peritoneum, which I entered bluntly and extended using blunt traction. I then placed an Ever ring retractor within the peritoneal incision, which offers excellent lateral sidewall retraction. The lower uterine segment was found to be thinned out and I make a low transverse incision to the vesicouterine peritoneum and bluntly dissected off the lower uterine segment. I proceeded with myotomy until membranes were visualized, at which point I extended the uterine incision laterally and superiorly using bandage scissors. Infant was found in vertex presentation. With gentle fundal pressure, the infant's head was elevated up the incision where the nares and oropharynx bulb suctioned. Nuchal cord was reduced x1. Anterior and posterior shoulders were delivered. was then brought to the operative field where the cord was doubly clamped and cut and infant was handed off to Dr. Samuels, who was present for delivery. Cord blood was collected. A 3-vessel cord with intact placenta was delivered spontaneously thereafter. IV Pitocin was initiated to facilitate uterine contraction. Uterine fundus became firmer with bimanual massage. Uterus was exteriorized and cleared of all endometrial clots and debris. I then proceeded with closing the uterine incision using 0 Vicryl suture in running locked fashion. Second layer of imbricating 0 Monocryl was placed. Excellent hemostasis was noted after doing this. I then placed the uterus back in the pelvis and copiously irrigated the pelvis using normal saline. Once again, there was no active bleeding noted from any of my dissection planes. I placed Interceed antiadhesive over my low transverse incision and proceeded with removing the Ever ring retractor. I reapproximated the peritoneum using 3-0 Vicryl suture in a running fashion. The rectus muscle reapproximated using 3-0 Vicryl suture in interrupted fashion. The fascia was reapproximated using 0 Vicryl suture in running fashion. Subcutaneous tissue was reapproximated using 3-0 plain in interrupted subcutaneous stitch and skin was reapproximated using 4-0 Monocryl running subcuticular. Dermabond was applied to incision and sterile dressing with adhesive white tape. The patient tolerated the procedure well and sent to recovery in stable condition. Lap and sponge count were correct at the end of procedure. Instrument counts correct as well. Two grams of Ancef were given probably for infection prophylaxis. Job ID: [id number] DocumentID: [id number] Dictated Date: 04/21/2020 21:53:07 Factory Representative Date: 04/22/2020 03:47:56 Dictated By: CHARAN DALAL DO
[2020-04-22] MEDS: KETOROLAC 30 MG/ML VIAL IV SCH ×2 (04:12→10:40)
[2020-04-22] MEDS: HYDROcodone/APAP 5 MG/325 MG (LORTAB) TAB PO PRN ×4 (04:27→21:17)
[2020-04-22 04:35] VITALS: BP 107/58
--- NOTE | 2020-04-22 04:37 | NUR ---
Assisted pt up to bathroom to void. No issues. Bleeding minimal
[2020-04-22 05:10] LABS: BASOPHILS % (AUTO) 0 % (0-10); EOSINOPHILS # (AUTO) 0.2 10^3/uL (0.0-0.3); EOSINOPHILS % (AUTO) 1 % (0-10); HEMATOCRIT 26 % (35-52); HEMOGLOBIN 8.6 G/DL (11.5-16.0); LYMPHOCYTES # (AUTO) 2.5 X 10^3 (1.0-4.0); LYMPHOCYTES % (AUTO) 15 % (12-44); MEAN CORPUSCULAR HEMOGLOBIN 28 PG (25-34); MEAN CORPUSCULAR HGB CONC 33 G/DL (32-36); MEAN CORPUSCULAR VOLUME 87 FL (80-99); MEAN PLATELET VOLUME 11.5 FL (7.4-10.4); MONOCYTES # (AUTO) 1.2 X 10^3 (0.0-1.0); MONOCYTES % (AUTO) 7 % (0-12); NEUTROPHILS # (AUTO) 13.1 X 10^3 (1.8-7.8); NEUTROPHILS % (AUTO) 77 % (42-75); PLATELET COUNT 169 10^3/uL (130-400); RED CELL DISTRIBUTION WIDTH 14.2 % (10.0-14.5)
[2020-04-22] MEDS: METOCLOPRAMIDE 10 MG (REGLAN) TAB PO SCH ×4 (07:10→20:24)
--- NOTE | 2020-04-22 07:23 | NUR ---
Report given to Sergio SCOTT
--- NOTE | 2020-04-22 07:52 | Postpartum Progress Note ---
JOSEMANUEL NAPOLES MD 04/22/20 0752: Note Note and postoperative Day # [1] Subjective: Patient is without complaints. Ambulating, voiding. Tolerating a regular diet without nausea or vomiting. Normal lochia. Pain is well controlled with oral pain medications. Her pain is exacerbated with walking and torso movement. [Breast] feeding well. She is passing gas but has yet to have a BM. She does admits to mild dysuria. Objective: [Vitals: temp 35.9, HR 105, BP 107/58, RR 18 ] Physical Exam: General - Alert and oriented, no apparent distress CV - Rate 90, regular rhythm; peripheral pulses palpable Pulm - CTA bilaterally with normal resp. effort Abdomen - Soft, appropriately tender to palpation, non-distended, fundus firm at umbilicus, Pfannenstiel incision c/d/i Extremities - mild nonpitting edema, nonTTP Neuro - grossly intact Psych - Calm and cooperative Assessment: 19yo complications: PUPPS, +NG/CT (-DAVI) Post- day # [1], status post following arrest of labor. Recovering well, hemodynamically stable (AP hgb: 11.7, PP hgb 8.6) Rubella equivocal Plan: Routine and postoperative care. PO pain meds prn MMR to be administered prior to discharge Encourage breast feeding. Encourage ambulation. Plan for discharge [04/23] Patient to be seen and discussed with Dr. Samuels. Vitals - Labs Vital Signs - I&O Vital Signs Date Time Temp Pulse Resp B/P (MAP) Pulse Ox O2 Delivery O2 Flow Rate FiO2 04/22/20 04:35 35.9 105 18 107/58 (74) 98 Room Air 04/22/20 00:15 36.4 122 18 118/70 (86) 04/21/20 22:45 37.1 22 109/78 (88) 99 Room Air 04/21/20 22:45 Room Air 04/21/20 22:40 22 107/76 (86) 99 Room Air 04/21/20 22:37 Room Air 04/21/20 22:30 18 108/79 (89) 100 Room Air 04/21/20 22:28 Room Air 04/21/20 22:20 22 102/64 (77) 99 Room Air 04/21/20 22:10 22 90/31 (50) 100 Room Air 04/21/20 22:10 Room Air 04/21/20 22:05 22 100/61 (74) 100 Room Air 04/21/20 21:57 Room Air 04/21/20 21:57 37.2 22 113/64 (80) 100 Room Air 04/21/20 20:40 112 20 145/83 (103) 97 Room Air 04/21/20 20:20 36.5 100 20 135/81 (99) 98 04/21/20 20:00 87 18 111/75 (87) 99 04/21/20 19:40 96 18 129/63 (85) 99 04/21/20 19:20 36.5 97 20 132/74 (93) 98 04/21/20 19:00 97 18 120/76 (91) 99 Room Air 04/21/20 18:45 97 18 132/78 (96) 99 Room Air 04/21/20 18:30 36.3 97 18 132/78 (96) 98 Room Air 04/21/20 18:15 106 18 107/59 (75) 98 Room Air 04/21/20 18:00 101 18 98/55 (69) 99 Room Air 04/21/20 17:45 100 18 100/53 (69) 99 Room Air 04/21/20 17:30 36.6 95 18 110/72 (85) 97 Room Air 04/21/20 17:15 86 18 100/57 (71) 96 Room Air 04/21/20 17:00 86 18 99/57 (71) 97 Room Air 04/21/20 16:45 78 18 101/55 (70) 97 Room Air 04/21/20 16:30 36.4 86 18 115/64 (81) 96 Room Air 04/21/20 16:15 86 18 111/69 (83) 97 Room Air 04/21/20 16:00 36.1 83 18 111/72 (85) 97 Room Air 04/21/20 15:45 96 18 122/85 (97) 98 Room Air 04/21/20 15:30 35.7 100 18 117/73 (88) 98 Room Air 04/21/20 15:15 96 18 125/77 (93) 97 Room Air 04/21/20 15:00 93 18 127/70 (89) 98 Room Air 04/21/20 14:45 95 18 121/69 (86) 97 Room Air 04/21/20 14:30 99 18 122/69 (86) 98 Room Air 04/21/20 14:15 127 18 135/71 (92) 98 Room Air 04/21/20 14:00 100 18 131/70 (90) 98 Room Air 04/21/20 13:45 102 18 134/63 (86) 98 Room Air 04/21/20 13:30 98 18 133/88 (103) 98 Room Air 04/21/20 13:15 36.0 94 18 122/75 (91) 98 Room Air 04/21/20 13:00 83 18 126/74 (91) 98 Room Air 04/21/20 12:45 87 18 129/78 (95) 98 Room Air 04/21/20 12:30 36.3 93 18 135/77 (96) 98 Room Air 04/21/20 12:15 85 18 132/74 (93) 97 Room Air 04/21/20 12:00 85 18 141/71 (94) 97 Room Air 04/21/20 11:45 107 18 145/75 (98) 97 Room Air 04/21/20 11:33 97 18 139/71 (93) 97 Room Air 04/21/20 11:30 97 18 138/84 (102) 98 Room Air 04/21/20 11:27 94 18 137/87 (104) 97 Room Air 04/21/20 11:26 104 18 136/80 (98) 98 Room Air 04/21/20 11:18 100 18 142/88 (106) 98 Room Air 04/21/20 11:16 100 18 136/79 (98) 98 Room Air 04/21/20 11:15 101 18 136/79 (98) Room Air 04/21/20 11:00 95 18 135/82 (99) Room Air 04/21/20 10:45 36.3 93 18 126/84 (98) Room Air 04/21/20 10:30 79 18 119/67 (84) Room Air 04/21/20 10:15 84 18 139/82 (101) Room Air 04/21/20 10:00 88 18 132/79 (96) Room Air 04/21/20 09:45 83 18 127/75 (92) Room Air 04/21/20 09:30 83 18 139/79 (99) Room Air 04/21/20 09:15 18 Room Air 04/21/20 09:00 18 Room Air 04/21/20 08:45 90 18 119/76 (90) Room Air 04/21/20 08:30 90 18 120/77 (91) Room Air 04/21/20 08:15 98 18 135/85 (102) Room Air 04/21/20 08:00 83 18 127/78 (94) Room Air 04/21/20 07:45 82 18 133/80 (97) Room Air I & O 04/22/20 07:00 Intake Total 3050 ml Output Total 1200 ml Balance 1850 ml Labs Laboratory Tests 04/21/20 07:44: White Blood Count 10.9, Red Blood Count 4.03L, Hemoglobin 11.7, Hematocrit 34L, Mean Corpuscular Volume 85, Mean Corpuscular Hemoglobin 29, Mean Corpuscular Hemoglobin Concent 34, Red Cell Distribution Width 14.1, Platelet Count 210, Me an Platelet Volume 11.3H, Neutrophils (%) (Auto) 65, Lymphocytes (%) (Auto) 23, Monocytes (%) (Auto) 9, Eosinophils (%) (Auto) 3, Basophils (%) (Auto) 0, Neutrophils # (Auto) 7.1, Lymphocytes # (Auto) 2.5, Monocytes # (Auto) 1.0, Eosinophils # (Auto) 0.3, Basophils # (Auto) 0.0 04/22/20 04:47: White Blood Count 17.0H, Red Blood Count 3.03L, Hemoglobin 8.6#L, Hematocrit 26L , Mean Corpuscular Volume 87, Mean Corpuscular Hemoglobin 28, Mean Corpuscular Hemoglobin Concent 33, Red Cell Distribution Width 14.2, Platelet Count 169, Mean Platelet Volume 11.5H, Neutrophils (%) (Auto) 77H, Lymphocytes (%) (Auto) 15, Monocytes (%) (Auto) 7, Eosinophils (%) (Auto) 1, Basophils (%) (Auto) 0, Neutrophils # (Auto) 13.1H, Lymphocytes # (Auto) 2.5, Monocytes # (Auto) 1.2H, Eosinophils # (Auto) 0.2, Basophils # (Auto) 0.0 JYOTI SAMUELS MD 04/24/20 1305: Supervisory-Addendum Brief Supervisory Addendum Pt seen by Dr. Dalal, I did not see her , cannot confirm resident note, see Dr. Dalal's notes. JOSEMANUEL NAPOLES MD Apr 22, 2020 07:52 JYOTI SAMUELS MD Apr 24, 2020 13:05
[2020-04-22] MEDS: CATHETER FLUSH 10 ML SYR IV SCH ×2 (08:15→10:41)
--- NOTE | 2020-04-22 08:19 | Postpartum Progress Note ---
Note Note Day # 1 Subjective: Patient is without complaints. Ambulating, voiding. Tolerating a regular diet without nausea or vomiting. Normal lochia. Pain is well controlled with oral pain medications. [ Objective: Physical Exam: General - Alert and oriented, no apparent distress Abdomen - Soft, appropriately tender to palpation, non-distended, fundus firm at umbilicus Extremities - no edema, negative Karan's bilaterally Incision- c/d/i Assessment: POD 1 PLTCS Acute blood loss anemia Plan: Routine care. Encourage breast feeding. Encourage ambulation. Ferrous sulfate supplementation. Plan for discharge tomorrow Vitals - Labs Vital Signs - I&O Vital Signs Date Time Temp Pulse Resp B/P (MAP) Pulse Ox O2 Delivery O2 Flow Rate FiO2 04/22/20 04:35 35.9 105 18 107/58 (74) 98 Room Air 04/22/20 00:15 36.4 122 18 118/70 (86) 04/21/20 22:45 37.1 22 109/78 (88) 99 Room Air 04/21/20 22:45 Room Air 04/21/20 22:40 22 107/76 (86) 99 Room Air 04/21/20 22:37 Room Air 04/21/20 22:30 18 108/79 (89) 100 Room Air 04/21/20 22:28 Room Air 04/21/20 22:20 22 102/64 (77) 99 Room Air 04/21/20 22:10 22 90/31 (50) 100 Room Air 04/21/20 22:10 Room Air 04/21/20 22:05 22 100/61 (74) 100 Room Air 04/21/20 21:57 Room Air 04/21/20 21:57 37.2 22 113/64 (80) 100 Room Air 04/21/20 20:40 112 20 145/83 (103) 97 Room Air 04/21/20 20:20 36.5 100 20 135/81 (99) 98 04/21/20 20:00 87 18 111/75 (87) 99 04/21/20 19:40 96 18 129/63 (85) 99 04/21/20 19:20 36.5 97 20 132/74 (93) 98 04/21/20 19:00 97 18 120/76 (91) 99 Room Air 04/21/20 18:45 97 18 132/78 (96) 99 Room Air 04/21/20 18:30 36.3 97 18 132/78 (96) 98 Room Air 04/21/20 18:15 106 18 107/59 (75) 98 Room Air 04/21/20 18:00 101 18 98/55 (69) 99 Room Air 04/21/20 17:45 100 18 100/53 (69) 99 Room Air 04/21/20 17:30 36.6 95 18 110/72 (85) 97 Room Air 04/21/20 17:15 86 18 100/57 (71) 96 Room Air 04/21/20 17:00 86 18 99/57 (71) 97 Room Air 04/21/20 16:45 78 18 101/55 (70) 97 Room Air 04/21/20 16:30 36.4 86 18 115/64 (81) 96 Room Air 04/21/20 16:15 86 18 111/69 (83) 97 Room Air 04/21/20 16:00 36.1 83 18 111/72 (85) 97 Room Air 04/21/20 15:45 96 18 122/85 (97) 98 Room Air 04/21/20 15:30 35.7 100 18 117/73 (88) 98 Room Air 04/21/20 15:15 96 18 125/77 (93) 97 Room Air 04/21/20 15:00 93 18 127/70 (89) 98 Room Air 04/21/20 14:45 95 18 121/69 (86) 97 Room Air 04/21/20 14:30 99 18 122/69 (86) 98 Room Air 04/21/20 14:15 127 18 135/71 (92) 98 Room Air 04/21/20 14:00 100 18 131/70 (90) 98 Room Air 04/21/20 13:45 102 18 134/63 (86) 98 Room Air 04/21/20 13:30 98 18 133/88 (103) 98 Room Air 04/21/20 13:15 36.0 94 18 122/75 (91) 98 Room Air 04/21/20 13:00 83 18 126/74 (91) 98 Room Air 04/21/20 12:45 87 18 129/78 (95) 98 Room Air 04/21/20 12:30 36.3 93 18 135/77 (96) 98 Room Air 04/21/20 12:15 85 18 132/74 (93) 97 Room Air 04/21/20 12:00 85 18 141/71 (94) 97 Room Air 04/21/20 11:45 107 18 145/75 (98) 97 Room Air 04/21/20 11:33 97 18 139/71 (93) 97 Room Air 04/21/20 11:30 97 18 138/84 (102) 98 Room Air 04/21/20 11:27 94 18 137/87 (104) 97 Room Air 04/21/20 11:26 104 18 136/80 (98) 98 Room Air 04/21/20 11:18 100 18 142/88 (106) 98 Room Air 04/21/20 11:16 100 18 136/79 (98) 98 Room Air 04/21/20 11:15 101 18 136/79 (98) Room Air 04/21/20 11:00 95 18 135/82 (99) Room Air 04/21/20 10:45 36.3 93 18 126/84 (98) Room Air 04/21/20 10:30 79 18 119/67 (84) Room Air 04/21/20 10:15 84 18 139/82 (101) Room Air 04/21/20 10:00 88 18 132/79 (96) Room Air 04/21/20 09:45 83 18 127/75 (92) Room Air 04/21/20 09:30 83 18 139/79 (99) Room Air 04/21/20 09:15 18 Room Air 04/21/20 09:00 18 Room Air 04/21/20 08:45 90 18 119/76 (90) Room Air 04/21/20 08:30 90 18 120/77 (91) Room Air I & O 04/22/20 07:00 Intake Total 3050 ml Output Total 1200 ml Balance 1850 ml Labs Laboratory Tests 04/22/20 04:47: White Blood Count 17.0H, Red Blood Count 3.03L, Hemoglobin 8.6#L, Hematocrit 26L , Mean Corpuscular Volume 87, Mean Corpuscular Hemoglobin 28, Mean Corpuscular Hemoglobin Concent 33, Red Cell Distribution Width 14.2, Platelet Count 169, Mean Platelet Volume 11.5H, Neutrophils (%) (Auto) 77H, Lymphocytes (%) (Auto) 15, Monocytes (%) (Auto) 7, Eosinophils (%) (Auto) 1, Basophils (%) (Auto) 0, Neutrophils # (Auto) 13.1H, Lymphocytes # (Auto) 2.5, Monocytes # (Auto) 1.2H, Eosinophils # (Auto) 0.2, Basophils # (Auto) 0.0 KARINE IRWIN DO Apr 22, 2020 8:19 am
[2020-04-22 08:22] VITALS: BP 117/58
--- NOTE | 2020-04-22 08:32 | Anesthesia-Regional Post-Op ---
Regional Patient Condition Mental Status: Alert, Oriented x3 Circulation: Same as Pre-Op Headache: Absent Sensation: Full Recovery Motor Block: Absent Post Op Complications Complications None Follow Up Care/Instructions Patient Instructions None needed. Anesthesia/Patient Condition Patient is doing well, no complaints, stable vital signs, no apparent adverse anesthesia problems. No complications reported per nursing. FREDY KUMAR CRNA Apr 22, 2020 08:32
--- NOTE | 2020-04-22 09:41 | NUR ---
ambulating in halls accompanied by mother. pushing in open crib.
[2020-04-22] MEDS: DOCUSATE SODIUM 100 MG (COLACE) CAP PO SCH ×2 (10:40→21:16)
[2020-04-22 12:32] VITALS: BP 120/66
--- NOTE | 2020-04-22 13:45 | NUR ---
ambulating in halls
[2020-04-22 15:14] VITALS: BP 107/61
[2020-04-22] MEDS: IBUPROFEN 600 MG (MOTRIN) TAB PO SCH ×2 (16:14→21:16)
[2020-04-22 20:10] VITALS: BP 124/73
[2020-04-23] MEDS ORDERED: IBUPROFEN 600 MG (MOTRIN) TAB PO SCH (03:00)
[2020-04-23 03:30] VITALS: BP 104/65
[2020-04-23] MEDS: METOCLOPRAMIDE 10 MG (REGLAN) TAB PO SCH ×2 (03:30→09:20)
[2020-04-23] MEDS: IBUPROFEN 600 MG (MOTRIN) TAB PO SCH ×2 (03:30→09:21)
[2020-04-23] MEDS: HYDROcodone/APAP 5 MG/325 MG (LORTAB) TAB PO PRN (03:31)
[2020-04-23] MEDS ORDERED: DCS100C PO (08:10)
[2020-04-23] MEDS ORDERED: HYDR-3812 PO (08:10)
[2020-04-23] MEDS ORDERED: IBUP-844 PO (08:10)
--- NOTE | 2020-04-23 08:11 | Discharge Inst-Women's Service ---
Discharge Inst-Women's Serv Depart Medication/Instructions New, Converted or Re-Newed RX: RX on Chart Final Diagnosis POD 2 PLTCS Acute blood loss anemia Problems Reviewed?: Yes Consults/Follow Up Additional Follow Up: Yes Orders/Referrals Dr. Dalal in 7-[address] Samuels at 6 weeks Activity Activity: Activity as Tolerated Driving Instructions: No Driving for 1 Week NO SMOKING: NO SMOKING Nothing Inside Vagina: No Douching, No Tampons Diet Discharge Diet: No Restrictions Symptoms to Report to : Bleeding Excessive, Pain Increased, Fever Over 101 Degrees F, Vaginal Bleeding Increase, Questions/Concerns For Any Problems or Questions: Contact Your Physician Skin/Wound Care Infection Signs and Symptoms: Increased Redness, Foul Odor of Wound, Increased Drainage, Skin Itchy or Has a Rash, Increased Swelling, Temperature Above 101 F Operative Area Clean and Dry: Keep Incision Clean/Dry Stitches/Dimitrios/Dermabond: Dermabond, Care of Stitches Bathing Instructions: KARINE Ramos DO Apr 23, 2020 08:11
--- NOTE | 2020-04-23 08:16 | Postpartum Progress Note ---
Note Note Day # 2 Subjective: Patient is without complaints. Ambulating, voiding. Tolerating a regular diet without nausea or vomiting. Normal lochia. Pain is well controlled with oral pain medications. Objective: Physical Exam: General - Alert and oriented, no apparent distress Abdomen - Soft, appropriately tender to palpation, non-distended, fundus firm at umbilicus Extremities - no edema, negative Karan's bilaterally Incision- c/d/i Assessment: POD 2 PLTCS Acute blood loss anemia Plan: Routine care. Encourage breast feeding. Encourage ambulation. Ferrous sulfate supplementation. Plan for discharge today Vitals - Labs Vital Signs - I&O Vital Signs Date Time Temp Pulse Resp B/P (MAP) Pulse Ox O2 Delivery O2 Flow Rate FiO2 04/23/20 03:30 37.2 89 18 104/65 (78) 98 Room Air 04/22/20 20:10 36.6 100 18 124/73 (90) 99 Room Air 04/22/20 15:14 36.8 107 18 107/61 (76) 96 Room Air 04/22/20 12:32 37.0 103 18 120/66 (84) 96 Room Air 04/22/20 08:22 36.7 107 18 117/58 (77) 96 Room Air KARINE IRWIN DO Apr 23, 2020 08:15
[2020-04-23 08:45] VITALS: BP 132/81
--- NOTE | 2020-04-23 08:45 | NUR ---
A.M. ASSESSMENT COMPLETED. VSS. CARING FOR IN ROOM. PLAN FOR DISCHARGE.
[2020-04-23] MEDS: DOCUSATE SODIUM 100 MG (COLACE) CAP PO SCH (09:21)
--- NOTE | 2020-04-23 10:26 | NUR ---
MMR GIVEN SUBQ IN RIGHT UPPER ARM. SITE CLEAR.
--- NOTE | 2020-04-23 10:55 | NUR ---
DISCHARGE INSTRUCTIONS REVIEWED WITH COPY TO PT. RXS GIVEN. STATES UNDERSTANDING OF ALL INSTRUCTIONS AND NEED TO F/U SCHEDULED AND NEEDED.
[2020-04-23 11:05] VITALS: BP 132/81
--- NOTE | 2020-04-23 11:05 | NUR ---
DISMISSED FROM [facility] VIA W/C WITH IN STABLE CONDITION TO FAMILY CAR ACC BY MOTHER AND MAGGY SCHNEIDER RN.
== END 2020-04-23 11:05 | disposition home or self-care (01) | DRG 787 ==
LOC: LDRP 05:31
PROVIDERS: ADMIT Family Medicine; ATTEND Family Medicine
PROC: 3E033VJ Introduction of Other Hormone into Peripheral Vein, Percutaneous Approach (ICD-10-PCS; 2020-04-21)
PROC: 10D00Z1 Extraction of Products of Conception, Low, Open Approach (ICD-10-PCS; principal; 2020-04-21 21:12)
DX: O48.0 Post-term pregnancy (principal); D62 Acute posthemorrhagic anemia; O76 Abnormality in fetal heart rate and rhythm complicating labor and delivery; O62.1 Secondary uterine inertia; O69.81X0 Labor and delivery complicated by cord around neck, without compression, not applicable or unspecified; O90.81 Anemia of the puerperium; Z3A.40 40 weeks gestation of pregnancy; Z37.0 Single live birth; O99.613 Diseases of the digestive system complicating pregnancy, third trimester; K21.9 Gastro-esophageal reflux disease without esophagitis; Z87.891 Personal history of nicotine dependence; Z23 Encounter for immunization
CPT/HCPCS: 36415; 85025; 86850; 86900; 86901; 90707

== ENCOUNTER 2021-09-05 22:32 | Emergency (ER) | payer MEDICAID ==
[~2021-09-05] VITALS: Ht 157 cm; Wt 85.3 kg
[~2021-09-05 22:32] MED LIST changes: +ACHD5005 PO; +DOCU-239 PO; +IBUP-844 PO; +PNV11TAB5 PO
[2021-09-05 23:08] LABS: BILIRUBIN,URINE NEGATIVE (NEGATIVE); CLARITY,URINE CLEAR; COLOR,URINE YELLOW; GLUCOSE, URINE (UA) NEGATIVE (NEGATIVE); KETONES,URINE 3+ (NEGATIVE); LEUKOCYTE ESTERASE ,URINE 1+ (NEGATIVE); NITRITE,URINE NEGATIVE (NEGATIVE); PH,URINE 6.5 (5-9); PROTEIN,URINE NEGATIVE (NEGATIVE)
[2021-09-05 23:15] LABS: BACTERIA,URINE TRACE /HPF
[2021-09-06] MEDS ORDERED: PROMETHAZINE 25 MG (PHENERGAN) TAB PO ONE (01:15)
[2021-09-06] MEDS ORDERED: PROM25TA14 PO (01:17)
--- NOTE | 2021-09-06 01:17 | ED General ---
General Chief Complaint: Neurological Problems Stated Complaint: 13 WKS PREG - HEADACHE/ABD PAIN/ R ARM PAIN Nursing Triage Note: PT C/O HEADACHE/NECK PAIN TODAY, LOSS OF VISION OUT OF RIGHT EYE AND FORGETFULNESS X1HR TODAY. REPORTS VISION RETURNED AFTER NAP. Source of Information: Patient Exam Limitations: No Limitations History of Present Illness Date Seen by Provider: Sep 05, 2021 Time Seen by Provider: 22:43 Initial Comments This 20-year-old young lady is at about 13 weeks gestational age. She presents with headache of severe onset this morning. She reports persistent nausea and vomiting throughout the and having difficulty staying hydrated. Along with this headache she had a disturbance of vision in the right eye that by description seems consistent with migraine aura. She also had difficulty with memory around the same time. She could not even remember her son's name at that time. She took a nap and the visual disturbance resolved. She reports having a "cold" throughout the weekend. Those symptoms have since improved. She reports having ultrasounds performed x2 by Dr. Hart who provides her care. She has had some ongoing right-sided abdominal pain for which she has been evaluated. Patient states she does have a history of migraines in the past. Allergies and Home Medications Allergies Coded Allergies: No Known Drug Allergies (Unverified , 04/21/20) Patient Home Medication List Home Medication List Reviewed: Yes Promethazine HCl (Promethazine Tablet) 25 Mg Tablet, 25 MG PO Q6H PRN for NAUSEA/VOMITING Prescribed by: SHAZIA BOLAÑOS on 09/06/21 0117 Discontinued Medications Acetaminophen (Tylenol) 325 Mg Capsule, 325 MG PO Q4H PRN for PAIN-MILD (1-4) Discontinued Reason: No Longer Taking Prescribed by: JOSEMANUEL NAPOLES on 04/13/20 1728 Last Action: Discontinued Docusate Sodium (Dok) 100 Mg Capsule, 100 MG PO BID PRN for CONSTIPATION-1ST LINE Discontinued Reason: No Longer Taking Prescribed by: KARINE IRWIN on 04/23/20 0810 Last Action: Discontinued Hydrocodone/Acetaminophen (Hydrocodone-Acetamin 5-325 mg) 1 Each Tablet, 1-2 TAB PO Q6HR PRN for PAIN-MODERATE (5-7) Discontinued Reason: No Longer Taking Prescribed by: KARINE IRWIN on 04/23/20 0810 Last Action: Discontinued Ibuprofen (Ibu) 600 Mg Tablet, 600 MG PO Q6H Discontinued Reason: No Longer Taking Prescribed by: KARINE IRWIN on 04/23/20 0810 Last Action: Discontinued [id number]/FA/Omega3/Dha/Fish Oil ( Gummies) 1 Each Tab.chew, 2 EACH PO DAILY, (Reported) Discontinued Reason: No Longer Taking Entered as Reported by: AUTUMN MINOR on 04/21/20 0853 Last Action: Discontinued Review of Systems Review of Systems Constitutional: no symptoms reported EENTM: see HPI Respiratory: see HPI Gastrointestinal: see HPI Genitourinary: see HPI : Yes Musculoskeletal: no symptoms reported Skin: no symptoms reported Psychiatric/Neurological: See HPI Hematologic/Lymphatic: No Symptoms Reported Immunological/Allergic: no symptoms reported Past Bgaxcme-Eeiftm-Ayllgs Hx Patient Social History Tobacco Use?: No Substance use?: No Alcohol Use?: No Pt feels they are or have been: No Immunizations Up To Date PED Vaccines UTD: Yes Seasonal Allergies Seasonal Allergies: No Past Medical History Surgery/Hospitalization HX: D&C, T/A, Surgeries: Yes (D&C 2019, Tooth Extraction) Respiratory: No Cardiac: No Neurological: Yes Headaches /Migraines : Yes Last Menstrual Period: Apr 02, 2021 Female Reproductive Disorders: Denies Sexually Transmitted Disease: Yes (GC/Chlamydia with this ) HIV/AIDS: No Genitourinary: Yes UTI-Chronic Gastrointestinal: Yes Gastroesophageal Reflux Musculoskeletal: No Endocrine: No HEENT: No Loss of Vision: Denies Hearing Impairment: Denies Cancer: No Psychosocial: No Integumentary: Yes (PUPPS with this ) Blood Disorders: No Adverse Reaction/Blood Tranf: No Family Medical History Heart murmur Grandparents (Maternal Grandmother) History of seizure in sibling G8 BROTHER (At age 7-8 r/t Cyst in Brain) Myocardial infarction Great-Grandparents (Maternal Great-Grandfather) Neoplasm Grandparents (Paternal Grandfather-) Ovarian cancer Great-Grandparents (Maternal Great-Grandmother) Psychosocial problem 19 FATHER (PTSD) Respiratory disorder Great-Grandparents (Maternal Great-Grandfather: Mesothelioma) Physical Exam Vital Signs Vital Signs - First Documented 09/05/21 22:45 Temp 36.7 Pulse 85 Resp 16 B/P (MAP) 134/84 (101) Pulse Ox 97 O2 Delivery Room Air Capillary Refill : Less Than 3 Seconds Height, Weight, BMI Height: '" Weight: lbs. oz. kg; 34.00 BMI Method: General Appearance: No Apparent Distress, WD/WN HEENT: PERRL/EOMI, Normal ENT Inspection, Pharynx Normal Neck: Normal Inspection Respiratory: Lungs Clear, Normal Breath Sounds, No Accessory Muscle Use Cardiovascular: Regular Rate, Rhythm, No Edema, No Murmur Gastrointestinal: Normal Bowel Sounds, Soft, Tenderness (right mid abdomen) Extremity: Normal Inspection, No Pedal Edema Neurologic/Psychiatric: Alert, Oriented x3, No Motor/Sensory Deficits, Normal Mood/Affect, licensed physical therapist II-XII Norm as Tested Skin: Normal Color, Warm/Dry Progress/Results/Core Measures Suspected Sepsis SIRS Temperature: Pulse: 85 Respiratory Rate: 16 Blood Pressure 134 /84 Mean: 101 Results/Orders Lab Results Laboratory Tests Test 09/05/21 22:50 Range/Units Urine Color YELLOW Urine Clarity CLEAR Urine pH 6.5 5-9 Urine Specific [place] 1.020 1.016-1.022 Urine Protein NEGATIVE NEGATIVE Urine Glucose (UA) NEGATIVE NEGATIVE Urine Ketones 3+ H NEGATIVE Urine Nitrite NEGATIVE NEGATIVE Urine Bilirubin NEGATIVE NEGATIVE Urine Urobilinogen 0.2 < = 1.0 MG/DL Urine Leukocyte Esterase 1+ H NEGATIVE Urine RBC (Auto) NEGATIVE NEGATIVE Urine RBC NONE /HPF Urine WBC 2-5 /HPF Urine Squamous Epithelial Cells 10-25 H /HPF Urine Crystals NONE /LPF Urine Bacteria TRACE /HPF Urine Casts NONE /LPF Urine Mucus MODERATE H /LPF Urine Culture Indicated NO Influenza Type A (RT-PCR) Not Detected Not Detecte Influenza Type B (RT-PCR) Not Detected Not Detecte SARS-CoV-2 RNA (RT-PCR) Not Detected Not Detecte My Orders Orders - SHAZIA MACIEL MD Ua Culture If Indicated (09/05/21 22:43) Covid 19 Inhouse Test (09/05/21 22:43) Influenza A And B By Pcr (09/05/21 22:43) Promethazine Tablet (Phenergan Tablet) (09/06/21 01:15) Vital Signs/I&O 09/05/21 09/06/21 22:45 01:20 Temp 36.7 36.5 Pulse 85 73 Resp 16 16 B/P (MAP) 134/84 (101) 125/68 Pulse Ox 97 98 O2 Delivery Room Air Room Air Capillary Refill : Less Than 3 Seconds Blood Pressure Mean: 101 Progress Note : Progress Note Because of her URI symptoms through the weekend a swab was collected for Covid and influenza. Both were negative. She was offered IV hydration and Phenergan. She elected to use oral Phenergan and try to aggressively hydrate at home. See discharge instructions. Departure Impression Primary Impression: Migraine headache with aura Qualified Codes: G43.109 - Migraine with aura, not intractable, without status migrainosus Additional Impressions: Nausea & vomiting Qualified Codes: R11.2 - Nausea with vomiting, unspecified Right sided abdominal pain Qualified Codes: Z34.90 - Encounter for supervision of normal , unspecified, unspecified trimester Disposition: 01 HOME, SELF-CARE Condition: Improved Departure-Patient Inst. Decision time for Depature: 01:14 Referrals: JYOTI HART MD (PCP/Family) Primary Care Physician Patient Instructions: Migraines in Adults Add. Discharge Instructions: Drink plenty of clear liquids to stay well-hydrated. Increase your clear fluid intake. Use Phenergan (promethazine) as prescribed for nausea and vomiting. Eating small quantities of bland food frequently throughout the day helps control nausea. You may use Tylenol (acetaminophen) up to 1000 mg every 6 hours as needed for pain or headache. You have pain on the right side of your abdomen which could be related to gallbladder or constipation. Please discuss this further with Dr. Hart at your follow-up appointment. Avoid fatty or greasy foods which may irritate the gallbladder. If constipation is a problem, you may use stool softener such as Colace, increase your dietary fiber, or use MiraLAX (polyethylene glycol) purchased [id number]. Call with questions or concerns. Return to the ER if you have worsening symptoms. All discharge instructions reviewed with patient and/or family. Voiced understanding. Scripts Promethazine HCl (Promethazine Tablet) 25 Mg Tablet 25 MG PO Q6H PRN for NAUSEA/VOMITING, #10 TAB Prov: SHAZIA MACIEL MD 09/06/21 Copy Copies To 1: JYOTI HART MD, JOSHUA T MD Sep 06, 2021 01:17
[2021-09-06 01:20] VITALS: BP 125/68
== END 2021-09-06 01:21 | disposition home or self-care (01) ==
LOC: EDUNIT# 22:32 → ER 22:33
DX: O99.351 Diseases of the nervous system complicating pregnancy, first trimester (principal); G43.109 Migraine with aura, not intractable, without status migrainosus; O21.0 Mild hyperemesis gravidarum; O26.891 Other specified pregnancy related conditions, first trimester; R10.9 Unspecified abdominal pain; Z20.822 Contact with and (suspected) exposure to COVID-19; Z3A.13 13 weeks gestation of pregnancy
CPT/HCPCS: 81000; 87636; 99283